=== PATIENT | female | born 1965 | race Caucasian/White ===

== ENCOUNTER 2017-09-19 06:57 | Emergency (ER) | END 2017-09-19 08:20 | disposition home or self-care (01) ==

== ENCOUNTER 2017-11-06 10:38 | Emergency (ER) | END 2017-11-06 12:40 | disposition home or self-care (01) ==

== ENCOUNTER 2018-03-31 14:11 | Emergency (ER) | END 2018-03-31 16:10 | disposition home or self-care (01) ==